=== PATIENT | male | born 1990 | race Two or more races ===

== ENCOUNTER → 2024-02-10 | Outpatient (CLI) | payer BC, SELFPAY ==
--- NOTE | 2024-02-10 11:30 | XR_ITS ---
Examination: CT soft tissue neck, with intravenous contrast. 2-D coronal reconstructions. 2-D sagittal reconstructions. Date and time of exam :February 10, 2024 1157 hours INDICATIONS: History nontoxic goiter thyroid nodules. CTDI: vol (mGy):12.6 DLP: (mGycm):378 Technique: 1.25 mm axial sections of the neck of the obtained. Coronal and sagittal reconstructions have been obtained. Intravenous contrast administered 50 cc Isovue-[id number]. Low dose protocols were performed. One or more of the following dose reduction techniques were used; automated exposure control, adjustment of the mA and/or KV according to patient size, use of iterative reconstruction technique. Findings: Maxillary antra are clear Symmetrical nasopharynx oropharynx No pathologic cervical lymphadenopathy The larynx appears normal Thyroid lobes are not enlarged Suspicious for 8 mm right thyroid nodule Normal epiglottis IMPRESSION: Suspicious for 8 mm right thyroid nodule, consider dedicated thyroid sonography follow-up
== END | disposition home or self-care (01) ==
PROVIDERS: PCP Family Medicine; Referring Provider Internal Medicine Endocrinology, Diabetes & Metabolism; Visit Provider Internal Medicine Endocrinology, Diabetes & Metabolism
DX: E04.1 Nontoxic single thyroid nodule (principal)
CPT/HCPCS: 70491; A4649; Q9967